=== PATIENT | female | born 1960 | race Caucasian/White ===

== ENCOUNTER 2017-06-20 05:14 | Emergency (ER) | payer MEDICAID ==
[~2017-06-20] VITALS: Ht 157.5 cm; Wt 90.7 kg
[~2017-06-20 05:14] MED LIST: ATEN50TA PO; LISI10TA5 PO
[2017-06-20 05:20] VITALS: BP_SYST 196
--- NOTE | 2017-06-20 05:20 | NUR ---
Patient to ER bed 4 to gown for evaluation. Side rails up.
--- NOTE | 2017-06-20 05:25 | NUR ---
PT IN BED 4 WITH C/O RIGHT ARM PAIN. DR GONZALEZ AWARE.
--- NOTE | 2017-06-20 05:43 | NUR ---
ER at bedside examining patient.
[2017-06-20] MEDS ORDERED: ASPIRIN 81 MG TAB.CHEW PO ONE (05:45)
--- NOTE | 2017-06-20 06:00 | NUR ---
Patient resting quietly. No acute distress noted. Vital signs within normal range.
[2017-06-20 06:42] LABS: BASOPHILS % (AUTO) 0.4 % (0.0-2.0); EOSINOPHILS # (AUTO) 0.1 K/uL (0.0-0.4); EOSINOPHILS % (AUTO) 1.1 % (0.0-4.0); HEMATOCRIT 37.8 % (36-48); HEMOGLOBIN 12.9 g/dL (12.0-16.0); LYMPHOCYTES # (AUTO) 3.6 K/uL (1.0-5.5); LYMPHOCYTES % (AUTO) 33.2 % (20.5-51.5); MEAN CORPUSCULAR HEMOGLOBIN 29 pg (27-31); MEAN CORPUSCULAR HGB CONC 34 % (32-36); MEAN CORPUSCULAR VOLUME 86 fL (79.0-98.0); MONOCYTES # (AUTO) 0.6 K/uL (0.0-1.0); MONOCYTES % (AUTO) 5.1 % (1.7-9.3); NEUTROPHILS # (AUTO) 6.6 K/uL (1.8-7.7); NEUTROPHILS % (AUTO) 60.2 % (40.0-70.0); PLATELET COUNT (AUTO) 181 K/uL (130-430); RED CELL DISTRIBUTION WIDTH 13.2 % (9.0-15.0); WHITE BLOOD COUNT (AUTO) 10.9 K/uL (4.8-10.8)
[2017-06-20 06:56] LABS: ANION GAP 6 (5-15); CALCIUM 8.6 mg/dL (8.4-11.0); CHLORIDE 106 mmol/L (98-107); CREATININE 0.61 mg/dL (0.55-1.30); GLUCOSE 106 mg/dL (70-99); POTASSIUM 3.7 mmol/L (3.5-5.1); SODIUM SERUM 138 mmol/L (136-145); UREA NITROGEN, BLOOD 19 mg/dL (8-21)
[2017-06-20 07:04] LABS: ALANINE AMINOTRANSFERASE 26 U/L (12-78); ALBUMIN 3.5 g/dL (3.4-4.8); ASPARTATE AMINOTRANSFERASE 18 U/L (10-37); LIPASE 183 U/L (73-393); TOTAL BILIRUBIN 0.5 mg/dL (0.0-1.0)
[2017-06-20 07:15] LABS: GFR AFRICAN AMERICAN 130 mL/min (>90)
--- NOTE | 2017-06-20 07:35 | NUR ---
Pt AAOx4 no acute distress noted. Repeat EKG done per Dr. Bear.
[2017-06-20 08:10] VITALS: BP_SYST 154
--- NOTE | 2017-06-20 08:10 | NUR ---
Patient given written and verbal discharge instructions and verbalizes understanding. ER MD discussed with patient the results and treatment provided. Patient in stable condition. ID arm band removed. Rx of FLEXERIL,NORCO,MOTRIN given. Patient educated on pain management and to follow up with PMD. Pain Scale 3. Opportunity for questions provided and answered. Medication side effect fact sheet provided.
== END 2017-06-20 08:10 | disposition home or self-care (01) ==
LOC: SED 05:14
DX: M54.12 Radiculopathy, cervical region (principal); I10 Essential (primary) hypertension
CPT/HCPCS: 36415; 71045; 80053; 83690-TC; 83880; 84484; 85025; 93005; 99285